=== PATIENT | female | born 1965 | race Caucasian/White ===

== ENCOUNTER 2024-03-04 16:19 | Emergency (ER) | payer OTHER, SELFPAY ==
--- NOTE | 2024-03-04 16:26 | ED.EYEPROB ---
HPI - Eye Problem General Chief complaint: Eye Problems Stated complaint: scratched left eye Time Seen by Provider: 03/04/24 16:39 Source: patient and RN notes reviewed Mode of arrival: ambulatory Limitations: no limitations History of Present Illness HPI Narrative: 58 year old female presents with concern for scratch on her left eye. Reports she feels like she scratched it with her mascara Wand this morning. She denies vision changes chief complaint: eye pain Related Data Allergies Allergy/AdvReac Type Severity Reaction Status Date / Time Cephalosporins Allergy Unknown Unknown Verified 03/04/24 16:41 Review of Systems Review of Systems: CONSTITUTIONAL: Denies malaise, chills, sweats, or fever. EYES: Denies visual changes. Reports left eye redness, irritation ENT: Denies rhinorrhea, congestion, sinus pain, otalgia or sore throat. SKIN: Denies rash or itching. NEUROLOGIC: Denies numbness, weakness, or headache. PSYCHIATRIC: Denies anxiety or depression. All systems reviewed & are unremarkable except as noted in HPI and below PMFSH Comments At time of signature, agree with nursing past medical, surgical, social and family history. There is no relevant family history pertinent to the presenting complaint Exam Narrative: GENERAL: Well-appearing, well-nourished, and in no acute distress. HEAD: Normocephalic, atraumatic. EYES: PERRLA and EOMI. No nystagmus. Left sclera conjunctivae not injected. Corneal abrasion noted upon Wood's lamp exam, see note Upper and lower eyelid unremarkable, no periorbital edema noted ENT: Nares clear. Mucous membranes moist. NECK: Supple. CHEST: No respiratory distress. Speaks in full sentences. HEART: Regular rate and rhythm. SKIN: Warm, dry, no visible rash. NEURO: Alert and oriented x3. PSYCH: Normal mood and affect Course Course Emergency Course: Patient is aware of diagnosis, understands and agrees to treatment plan. Anticipatory guidance given. Patient agrees to follow-up as directed and is aware of reasons to seek care at the emergency department. Portions of this record may have been created with voice recognition software Level of Care: Express Care Visit Vital Signs Vital signs: Reviewed. Procedures Other Procedure Procedure 1: Other Procedure: Tetracaine 1 gtt instilled in left eye, fluorescein stain applied. Corneal abrasion noted upon frey lamp exam just above. Eye washed with NS 100 ml. No foreign bodies or Tyler sign noted. MDM - Eye Problem MDM Narrative Medical decision making narrative: Consideration of the following conditions may be warranted for the presenting problem, they are not final diagnoses: Bacterial conjunctivitis, allergic conjunctivitis, viral conjunctivitis, foreign body, blepharitis, chalazion, hordeolum, corneal abrasion, preseptal cellulitis, orbital cellulitis. No evidence of proptosis, ophthalmoplegia, vision loss, pain with eye movement. Exam findings show no acute concerns or changes; patient is non-toxic appearing and is in no distress. Patient is appropriate for outpatient treatment and follow-up. Critical Care Time Critical Care Time Critical Care Time: No Discharge Plan Discharge Clinical Impression: Corneal abrasion Patient Disposition: Home, Self-Care Condition: Stable Instructions: Corneal Abrasion (ED) Additional Instructions: Corneal abrasions will heal in 1-2 days. Keep your eye shut and wear sunglasses or stay in low light to avoid light sensitivity. Do not touch or rub your eye or use a fabric patch You may take Tylenol or ibuprofen for pain Follow-up with PCP or trench pipe layer helper if condition is not improving in 2-3days. Prescriptions: New polymyxin B sulf-trimethoprim 10,000 unit- 1 mg/mL drops 1 drp LEFT EYE Q3H 7 Days Qty: 10 0RF Rx Instructions: while awake; do not exceed 6 doses in 24 hours Follow-up/Referrals: PHYSICIAN,POTATO SEED CUTTER [Primary Care Provider] -
[2024-03-04 16:41] VITALS: BP 130/60; PULSE 70; RESP 16; TEMP 36.6; O2SAT 99
== END 2024-03-04 16:56 | disposition home or self-care (01) ==
PROVIDERS: Emergency Provider Nurse Practitioner
DX: S05.02XA Injury of conjunctiva and corneal abrasion without foreign body, left eye, initial encounter (principal); W22.8XXA Striking against or struck by other objects, initial encounter
CPT/HCPCS: 99203; A9270; G0463

== ENCOUNTER 2024-06-16 15:10 | Emergency (ER) | payer OTHER, SELFPAY ==
[2024-06-16 15:20] VITALS: BP 126/73; PULSE 83; RESP 16; TEMP 36.4; O2SAT 100
[2024-06-16 16:07] LABS: EDUAAPPEAR Clear; EDUABILI Negative (Negative); EDUABLOOD Negative (Negative); EDUACOLOR1 Light/Pale; EDUAGLUCOSE Negative (Negative); EDUAKETONE Negative (Negative); EDUALEUKO Negative (Negative); EDUANITRATE Negative (Negative); EDUAPROTEIN Negative (Negative); EDUAUROBILI 0.2
--- NOTE | 2024-06-16 16:38 | ED_ITS ---
HPI - Female Genitourinary General Chief complaint: Urogenital-Female Stated complaint: uti symptoms Time Seen by Provider: 06/16/24 16:10 Source: patient Mode of arrival: ambulatory Limitations: no limitations History of Present Illness HPI Narrative: 58-year-old female presents with complaint of vaginal irritation, itching for approximately 5-6 days. Tried an [id number] Monistat without relief. Called telehealth through her health insurance on Wednesday and was prescribed Bactrim and fluconazole. Continues to have symptoms. Tried [id number] Monistat again yesterday. Patient reports recently getting multiple yeast infections due to getting sweaty during tennis. States she has tried showering and changing our undergarments right after exercise but does not seem to be helping. Denies discharge. No concern for STI. Is having some urinary frequency and urgency. Thinks she needs another Diflucan. All Systems reviewed and negative except as noted. Related Data Allergies Allergy/AdvReac Type Severity Reaction Status Date / Time Cephalosporins Allergy Unknown Unknown Verified 06/16/24 15:31 Review of Systems Review of Systems: CONSTITUTIONAL: Denies fever, chills, or sweats. EYES: Denies visual changes, redness, or discharge. ENT: Denies rhinorrhea, congestion, sore throat, or otalgia. CARDIOVASCULAR: Denies chest pain, palpitations, or edema. RESPIRATORY: Denies cough or dyspnea. GASTROINTESTINAL: Denies abdominal pain, nausea, vomiting, or diarrhea. GENITOURINARY: Denies dysuria or hematuria. Reports vaginal irritation and discharge. Reports urinary frequency and urgency. SKIN: Denies rash or itching. MUSCULOSKELETAL: Denies back pain, joint pain, or myalgia. NEUROLOGIC: Denies headache, numbness, or weakness. PSYCHIATRIC: Denies anxiety or depression. All other systems reviewed are negative, except as documented in HPI. PMFSH Comments At time of signature, agree with nursing past medical, surgical, social and family history. There is no relevant family history pertinent to the presenting complaint. Exam Narrative: GENERAL: This is a well-nourished, well-developed patient, in no apparent distress. HEAD: normocephalic, atraumatic. EYES: PERRL. Sclera clear/white. Vision is grossly intact. EARS: External ears normal NOSE: External nose normal NECK: Neck supple, non-tender without lymphadenopathy, masses or thyromegaly. CARDIOVASCULAR: Regular rate and rhythm without murmurs, gallops, or rubs. RESPIRATORY: Clear to auscultation. Breath sounds equal bilaterally. No wheezes, rales, or rhonchi. SKIN: warm, Dry, intact with no suspicious lesions or rash, good texture and turgor. NEURO: awake, alert, and oriented to person, place and time. There were no obvious focal neurologic abnormalities. EXTREMITIES: No joint tenderness, effusion, or edema noted. Urogenital: Pelvic exam deferred Course Course Level of Care: Express Care Visit Vital Signs Vital signs: Vital Signs Temperature 36.4 C 06/16/24 15:20 Pulse Rate 83 06/16/24 15:20 Respiratory Rate 16 06/16/24 15:20 Blood Pressure 126/73 06/16/24 15:20 Pulse Oximetry 100 06/16/24 15:20 Temperature 36.4 C 06/16/24 15:20 Pulse Rate 83 06/16/24 15:20 Respiratory Rate 16 06/16/24 15:20 Blood Pressure 126/73 06/16/24 15:20 Pulse Oximetry 100 06/16/24 15:20 Reviewed MDM - Female Genitourinary MDM Narrative Medical decision making narrative: Bacterial vaginosis and general culture pending. Urinalysis was normal. Patient well-appearing, nontoxic. Recommend patient follow-up with watermelon inspector if symptoms not improving. Patient is aware of diagnosis, understands and agrees to treatment plan. Anticipatory guidance given. Patient agrees to follow-up as directed and is aware of reasons to seek care at the emergency department. Portions of this record may have been created with voice recognition software Lab Data Labs: Lab Results 06/16/24 06/16/24 Range/Units 16:05 16:34 POC Urine Color Light/pale POC Urine Clarity Clear POC Urine pH 6.0 POC Ur Specif Frakes 1.010 POC Urine Protein Negative (Negative) POC Ur Glucose (UA) Negative (Negative) POC Urine Ketones Negative (Negative) POC Urine Blood Negative (Negative) POC Urine Nitrite Negative (Negative) POC Urine Bilirubin Negative (Negative) POC Urine Urobilinogen 0.2 POC U Leukocyte Esteras Negative (Negative) Bact Vaginosis Panel Pending Discharge Plan Discharge Clinical Impression: Vaginitis Qualifiers: Chronicity: acute Qualified Code(s): N76.0 - Acute vaginitis Patient Disposition: Home, Self-Care Condition: Stable Instructions: Yeast Infection (ED) Additional Instructions: Testing was ordered for yeast and bacterial vaginosis. Results will take 48 to 72 hours. Take fluconazole as prescribed. Follow up with watermelon inspector if symptoms not improving. Patient Language: Monegasque Prescriptions: New fluconazole 150 mg tablet 150 mg PO ONCE 1 Days Qty: 1 0RF Follow-up/Referrals: PHYSICIAN,SUPERVISOR AIRCRAFT CLEANING [Primary Care Provider] - Time of Disposition: 16:33
[2024-06-17 11:24] LABS: Bacterial Vaginosis NEGATIVE (NEGATIVE)
== END 2024-06-16 16:41 | disposition home or self-care (01) ==
PROVIDERS: Emergency Provider Nurse Practitioner Family
DX: N76.0 Acute vaginitis (principal)
CPT/HCPCS: 81003; 81513; 87070; 99213; G0463

== ENCOUNTER 2024-09-18 16:01 | Emergency (ER) | payer OTHER, SELFPAY ==
[2024-09-18 16:30] VITALS: BP 124/80; PULSE 68; RESP 16; TEMP 36.2; O2SAT 100
--- NOTE | 2024-09-18 17:04 | ED_ITS ---
HPI - Ear Problem General Chief complaint: Ear Stated complaint: Ear Pain Source: patient Mode of arrival: ambulatory Limitations: no limitations History of Present Illness HPI Narrative: 58 y/o female presented for c/o right ear pain for over 2 weeks. Pt was in [place] at onset, and utilized Tele[employer], advised antihistamines and Flonase. When that did not resovle the symptoms she was sent levofloxacin. Still reports right ear fullness and drainage. Denies tinnitus, dizziness, sore throat, n/v/d/f/c. Says she cannot tolerate the Zyrtec due to nose bleeds. Complaint: ear pain Related Data Allergies Allergy/AdvReac Type Severity Reaction Status Date / Time Cephalosporins Allergy Unknown Unknown Verified 06/16/24 15:31 Review of Systems Review of Systems: CONSTITUTIONAL: Denies malaise, chills, or fever. EYES: Denies visual changes, redness, or discharge. ENT: Denies sinus pain, and sore throat. Reports ear pain CARDIOVASCULAR: Denies chest pain, palpitations, or edema. RESPIRATORY: reports cough. GASTROINTESTINAL: Denies abdominal pain, nausea, vomiting, diarrhea SKIN: Denies rash or itching. MUSCULOSKELETAL: Denies myalgia. NEUROLOGIC: Denies headache. All systems reviewed & are unremarkable except as noted in HPI and below PMFSH Comments At time of signature, agree with nursing past medical, surgical, social and family history. There is no relevant family history pertinent to the presenting complaint Exam Narrative: GENERAL: Well-appearing EYES: conjunctivae clear ENT: Nares clear. Mucous membranes moist. TMs pearly lopez with dull light reflex bilaterally; right TM with cloudy effusion. no tragal tenderness. Oropharynx not erythematous without lesions. NECK: Supple. No lymphadenopathy CHEST: Clear to auscultation, breath sounds equal. HEART: Regular rate and rhythm. No murmur heard. SKIN: Warm, dry, no rash. NEURO: Alert and oriented x3. PSYCH: Normal mood and affect Course Course Emergency Course: Patient is aware of diagnosis, understands and agrees to treatment plan. Anticipatory guidance given. Patient agrees to follow-up as directed and is aware of reasons to seek care at the emergency department. Portions of this record may have been created with voice recognition software Level of Care: Express Care Visit Vital Signs Vital signs: Vital Signs Temperature 97.1 F L 09/18/24 16:30 Pulse Rate 68 09/18/24 16:30 Respiratory Rate 16 09/18/24 16:30 Blood Pressure 124/80 09/18/24 16:30 Pulse Oximetry 100 09/18/24 16:30 Temperature 97.1 F L 09/18/24 16:30 Pulse Rate 68 09/18/24 16:30 Respiratory Rate 16 09/18/24 16:30 Blood Pressure 124/80 09/18/24 16:30 Pulse Oximetry 100 09/18/24 16:30 Reviewed Medical Decision Making MDM Narrative Medical decision making narrative: Discussed physical exam findings, right AOM. Advised supportive measures and signs/symptoms to go to the ER. Patient is appropriate for outpatient treatment and follow-up. Differential Diagnosis Differential Diagnosis: Coronavirus, strep pharyngitis, allergic rhinitis, upper respiratory tract infection, sinusitis, rhinosinusitis, nasopharyngitis, viral pharyngitis, otitis media, otitis externa, eustachian tube dysfunction, foreign body, cerumen imp action. Vital Signs Vital Signs: Vital Signs Temperature 97.1 F L 09/18/24 16:30 Pulse Rate 68 09/18/24 16:30 Respiratory Rate 16 09/18/24 16:30 Blood Pressure 124/80 09/18/24 16:30 Pulse Oximetry 100 09/18/24 16:30 Temperature 97.1 F L 09/18/24 16:30 Pulse Rate 68 09/18/24 16:30 Respiratory Rate 16 09/18/24 16:30 Blood Pressure 124/80 09/18/24 16:30 Pulse Oximetry 100 09/18/24 16:30 Discharge Plan Discharge Clinical Impression: Otitis media Patient Disposition: Home Condition: Stable Instructions: Antibiotic Form, Ear Infection (ED) Additional Instructions: Take antibiotics as directed. Recommendations: antihistamine such as Benadryl, Zyrtec or Hailey for sinus congestion Flonase nasal spray, and saline nasal mist. Increase fluids, and increase humidity of the air at home. Tylenol 1000mg every 8 hours as needed to reduce fever, pain Please schedule a follow-up visit with your personal physician If your symptoms persist, change or worsen significantly, go to the emergency department for further evaluation. Patient Language: Swedish Prescriptions: New prednisone 20 mg tablet 40 mg PO DAILY 4 Days Qty: 8 0RF amoxicillin-pot clavulanate 875-125 mg tablet 1 tablet PO Q12H 7 Days Qty: 14 0RF fluconazole 150 mg tablet 150 mg PO DAILY Qty: 2 0RF Follow-up/Referrals: PHYSICIAN,LICENSED AND CERTIFIED MIDWIFE [Primary Care Provider] - Time of Disposition: 17:12
== END 2024-09-18 17:15 | disposition home or self-care (01) ==
PROVIDERS: Emergency Provider Nurse Practitioner Family
DX: H66.91 Otitis media, unspecified, right ear (principal)
CPT/HCPCS: 99213; G0463

== ENCOUNTER 2025-01-11 01:29 | Emergency (ER) | payer OTHER, SELFPAY ==
--- OUTSIDE RECORDS SUMMARY | 2025-01-11 01:31 | XMS_ITS | Clinical Summary ---
Author Organization [facility] Administrative Offices Address [address] [place] [id number] Care Team Providers Care Overlay Plastician Name Role Phone Unavailable Primary Care Provider Unavailabl e Allergies Active Allergy Reactions Criticality Noted Date Comments Cephalosporins Rash Medium 12/06/2018 Medications Ciclopirox (Ciclodan) 8 % Solution Apply to affected area daily. Once weekly clean the nail with rubbing alcohol. 6.6 mL 5 11/04/2020 Active Active Problems Problem Noted Date Diagnosed Date Plantar fasciitis 03/14/2019 Immunizations Immunization Administration Dates Next Due (ADACEL/BOOSTRIX)(10 YR UP) TDAP VACCINE, 0.5ML, IM 12/06/2018 (PFIZER)(12 YR UP) COVID-19 VACCINE - EMERGENCY USE AUTHORIZATION, MRNA, [id number](PF) 30 MCG/0.3 ML IM SUSP 09/27/2020,09/07/2020 Hepatitis A Vaccine 12/06/2018 Hepatitis B Vaccine 12/06/2018 Influenza Seasonal Unspecified Formulation IM Family History Medical History Relation Name Comments Heart Disease Father pacemaker High Cholesterol Father Heart Disease Mother Healthy Sister 1 Healthy Sister 2 Relation Name Status Comments Father Alive Mother Alive Sister 1 Alive Sister 2 Alive Social History Tobacco Use Types Packs/Day Years Used Date Smoking Tobacco: Never Smokeless Tobacco: Never Comments No Sex and Gender Information Value Date Recorded Sex Assigned at Not on file Legal Sex Female 11:55 AM GAS SYSTEM OPERATOR Gender Identity Not on file Sexual Orientation Not on file Last Filed Vital Signs Vital Sign Reading Time Taken Comments Blood Pressure 120/60 04/04/2020 10:50 AM CDT Pulse 62 11/04/2020 1:51 PM CDT Temperature 37.1 C (98.7 F) 04/04/2020 10:50 AM CDT Respiratory Rate - - Oxygen Saturation 99% 04/04/2020 10:50 AM CDT Inhaled Oxygen Concentration - - Weight 59 kg (130 lb) 11/04/2020 1:51 PM CDT Height 170.2 cm (5' 7) 11/04/2020 1:51 PM CDT Body Mass Index 20.36 11/04/2020 1:51 PM CDT Plan of Treatment Health Maintenance Due Date Last Done Comments HPV/Cotest (21-29) 1985 CERVICAL CANCER SCREENING 1994 HPV/Cotest (30-65) 1994 PAP SMEAR 1994 COLORECTAL SCREENING 2009 Colorectal Cancer Screening 2009 FIT-DNA Q 3 years 2009 FIT/FOBT Q 1 year 2009 Flex Sig/CT Colonography Q 5 years 2009 ZOSTER VACCINE (1 of 2) 2014 BREAST CANCER SCREENING 07/08/2019 07/08/19 19, 06/09/2018 COVID-19 Vaccine (3 - 2023-2 5 season) 2024 09/27/2020, 09/07/2020 INFLUENZA VACCINE (#1) 2025 0, 03/23/2020 DTAP/TDAP/TD VACCINES (2 - T d or Tdap) 12/06/2028 12/06/2018 RSV VACCINE (60+ or ) (1 - 1-dose 75+ series) 10/15/2039 HEPATITIS B VACCINES Aged Out 12/06/2018 No long er eligible based on patient's age to complete this topic Procedures Procedure Name Priority Date/Time Associated Diagnosis Comments MAMMO DIAG UNI RIGHT 3D JOSSELIN W OR WO CAD Routine 07/08/2018 8:58 AM GAS SYSTEM OPERATOR Other abnormal and inconclusive findings on diagnostic imaging of breast from Last 3 Months or Most Recently Relevant to Health Maintenance Results * MAMMO DIAG UNI RIGHT 3D JOSSELIN W OR WO CAD (07/08/2018 8:58 AM GAS SYSTEM OPERATOR) Anatomical Region Laterality Modality Breast Right Mammography 07/08/2018 8:58 AM GAS SYSTEM OPERATOR Impressions 07/08/2018 4:49 PM GAS SYSTEM OPERATOR IMPRESSION: No mammographic evidence of malignancy. RECOMMENDATIONS: Routine screening mammogram in one year. DICTATION LOCATION: [facility] Narrative 07/08/2018 4:49 PM GAS SYSTEM OPERATOR EXAM: UNILATERAL FULL-FIELD DIGITAL DIAGNOSTIC MAMMOGRAM OF THE RIGHT BREAST WITH CAD WITH 3D TOMOSYNTHESIS DATE: 07/08/2018 8:58 AM HISTORY: Recent abnormal screening mammogram. TECHNIQUE: Full-field digital mammography of the right breast was performed. Low-dose full-field digital breast tomosynthesis examination was performed with 2D and 3D acquisitions. Examination is read in conjunction with computer aided detection. COMPARISON: May 2013 and May 2018. BREAST COMPOSITION: Scattered fibroglandular densities. FINDINGS: Additional mammographic views do not confirm the presence of an abnormality in the area previously suspected on mammography. The patient has been informed. Computer aided detection identified no significant abnormality. OVERALL ASSESSMENT: BI-RADS Category 1 - Negative. Procedure Note Shade Zimmerman MD - 07/08/2018 EXAM: UNILATERAL FULL-FIELD DIGITAL DIAGNOSTIC MAMMOGRAM OF THE RIGHT BREAST WITH CAD WITH 3D TOMOSYNTHESIS DATE: 07/08/2018 8:58 AM HISTORY: Recent abnormal screening mammogram. TECHNIQUE: Full-field digital mammography of the right breast was performed. Low-dose full-field digital breast tomosynthesis examination was performed with 2D and 3D acquisitions. Examination is read in conjunction with computer aided detection. COMPARISON: May 2013 and May 2018. BREAST COMPOSITION: Scattered fibroglandular densities. FINDINGS: Additional mammographic views do not confirm the presence of an abnormality in the area previously suspected on mammography. The patient has been informed. Computer aided detection identified no significant abnormality. OVERALL ASSESSMENT: BI-RADS Category 1 - Negative. IMPRESSION: No mammographic evidence of malignancy. RECOMMENDATIONS: Routine screening mammogram in one year. DICTATION LOCATION: [facility] Greg Zuñiga MD MAMMO ORDERABLES Final Result from Last 3 Months or Most Recently Relevant to Health Maintenance [place] [address] [place] [address] [facility] [id number]
--- OUTSIDE RECORDS SUMMARY | 2025-01-11 01:31 | XMS_ITS | Referral Summary ---
Author Organization [facility] Address [address] [place] [id number] Care Team Providers Care Small Business Consultant Name Role Phone Real Bo MD Primary Care Provider + Sil Souza MD Unavailable [phone] Allergies Active Allergy Reactions Criticality Noted Date Comments Cephalosporins Hives,Rash Medium 12/06/2018 Medications CALCIUM ORAL Take by mouth daily Active [id number] -FISH OIL-COQ10 ORAL Take 2 tablets by mouth daily Active Active Problems Problem Noted Date Diagnosed Date Cervical cancer screening 07/21/2024 Overview (07/21/2024): 07/13/2024 - Pap Negative, HPV Negative. Well woman exam with routine gynecological exam 07/13/2024 Assessment & Plan (07/13/2024 10:29 AM LEAF SIZE PICKER): Pap smear and HPV were performed. Recommend self-breast exam and she is getting her mammogram this year. She is also planning on doing the Cologuard test. Plan to check a BD affirm for rule out yeast. We will also send a urine culture on though her urinalysis was negative. She was given information on vulvar care as well as samples of lubricants. Recommend follow-up in 1 year. Urinary frequency 07/13/2024 Pain of foot 08/17/2016 Social History Tobacco Use Types Packs/Day Years Used Date Smoking Tobacco: Never AUDIT-C Answer Date Recorded Frequency of Alcohol Consumption Not on file 07/13/2024 Q2: How many drinks containi ng alcohol do you have on a typical day when you are drinking? Patient does not drink Frequency of Binge Drinking Not on file 06/16 Comments No Sex and Gender Information Value Date Recorded Sex Assigned at Not on file Legal Sex Female 6:17 AM LEAF SIZE PICKER Gender Identity Not on file Sexual Orientation Not on file Last Filed Vital Signs Vital Sign Reading Time Taken Comments Blood Pressure 114/62 07/13/2024 9:12 AM LEAF SIZE PICKER Pulse - - Temperature - - Respiratory Rate - - Oxygen Saturation - - Inhaled Oxygen Concentration - - Weight 64.9 kg (143 lb) 07/13/2024 9:12 AM LEAF SIZE PICKER Height 166.4 cm (5' 5.5) 07/13/2024 9:12 AM LEAF SIZE PICKER Body Mass Index 23.43 07/13/2024 9:12 AM LEAF SIZE PICKER Plan of Treatment Not on file Procedures Procedure Name Priority Date/Time Associated Diagnosis Comments HIGH RISK HPV DNA DETECTION WITH GENOTYPING Routine 07/13/2024 12:00 PM LEAF SIZE PICKER Well woman exam with routine gynecological exam Special screening examination for human papillomavirus (HPV) Screening for malignant neoplasm of the cervix from Last 3 Months or Most Recently Relevant to Health Maintenance Results * High Risk HPV DNA Detection with Genotyping (Molecular component) (07/13/2024 12:00 PM LEAF SIZE PICKER) HPV HR 16 Not Detected Not Detected HPV HR 18 Not Detected Not Detected [facility] HPV HR Non 16/18 Not Detected Not Detected [facility] Comment: Interpretive Data Nucleic acid amplification for detection of high-risk Human Papilloma virus (HPV) is performed by the Dread [place] 4800 HPV test, which specifically detects high-risk HPV-16, 18, 31, 33, 35, 39, 45, 51, 52, 56, 58, 59, 66, and 68 genotypes. This assay has been approved by the [place] Food and Drug Administration for detection of HPV in cervical specimens collected by a physician using an endocervical brush/spatula or cervical broom and placed in the ThinPrep Pap Test PreservCyt collection containers. The performance characteristics of this test have been verified by the [facility]. Correlate with separately reported cytology results, as applicable. Interpretive data last revised 22 Endocervical 07/13/2024 12:0 0 PM LEAF SIZE PICKER 07/13/2024 4:14 PM LEAF SIZE PICKER Narrative [facility] - 07/19/2024 5:58 PM LEAF SIZE PICKER Clinical history and diagnosis->z01.419 Number of vials->1 Testing type->Screening Last menstrual period (date if known)->none us Sil Souza MD LAB BODY FLUIDS AND STOOLS OR DERABLES Final Result [facility] [address] Department [place] [address] from Last 3 Months or Most Recently Relevant to Health Maintenance Insurance [employer] Care Teams Small Business Consultant Relationship Specialty Start Date End Date Real Bo MD PCP - General 10/05/16 Sil Souza MD [address] [place] [address] Consulting Physician Obstetrics and Gynecology 06/20/24
--- OUTSIDE RECORDS SUMMARY | 2025-01-11 01:31 | XMS_ITS | Clinical Summary ---
Author Organization [facility] Address [address] [place] [address] Care Team Providers Care Belt Picker Name Role Phone Danny Barker MD Primary Care Provider [phone] Source Comments [facility],non-owned Affiliates and Associated Physician Practices is amultiple site organization consisting of ambulatory clinics and hospital sitesin [place], [place], [place] and [place]. This disclosure is being madepursuant to the Care Everywhere program and may not contain all information available regarding this patient. Last updated 18.[facility] Allergies Active Allergy Reactions Criticality Noted Date Comments Cephalosporins Rash Medium 12/06/2018 Immunizations Immunization Administration Dates Next Due HEP A VACCINE, ADULT 12/06/2018 HEP B VACCINE, ADULT 3 DOSE 12/06/2018 TDAP (7yrs+) 12/06/2018 Social History Tobacco Use Types Packs/Day Years Used Date Smoking Tobacco: Never Assessed Comments Unknown Sex and Gender Information Value Date Recorded Sex Assigned at Not on file Legal Sex Female 3:05 PM CDT Gender Identity Not on file Sexual Orientation Not on file Plan of Treatment Health Maintenance Due Date Last Done Comments COLOGUARD (AGES 45-75) - COL ON CA SCREENING 1964 COLON MONITORING 1964 COLONOSCOPY - COLON CA SCREENING 1964 CT COLONOGRAPHY - COLON CA SCREENING 1964 Colorectal Cancer Screening 1964 FIT - COLON CA SCREENING 1964 FLEX SIG - COLON CA SCREENING 1964 LIPID TESTING 1964 MAMMOGRAM 1964 HIV SCREENING 10/15/1979 HEPATITIS C SCREENING 10/10/1982 PNEUMOCOCCAL VACCINE 50+ (1 of 1 - PCV) 2014 ZOSTER VACCINE (1 of 2) 2014 HEPATITIS B VACCINE (2 of 3 - Risk 3-dose series) 01/03/2019 12/06/2018 HEPATITIS A VACCINE (2 of 2 - Risk 2-dose series) 06/07/2019 12/06/2018 COVID-19 VACCINE (1 - 2023-2 5 season) 2024 DEPRESSION SCREENING 06/14/2024 INFLUENZA VACCINE (#1) 2025 DTAP/TDAP/TD VACCINES (2 - T d or Tdap) 12/06/2028 12/06/2018 Respiratory Syncytial Virus (RSV) Vaccine Pt: or over 60 yrs (1 - 1-dose 75+ series) 10/15/2039 HIB VACCINE Aged Out No longer eligi ble based on patient's age to complete this topic HPV VACCINE Aged Out No longer eligi ble based on patient's age to complete this topic MENINGOCOCCAL (Group B) VACC INE SHARED DECISION-MAKING Aged Out No longer eligibl e based on patient's age to complete this topic MENINGOCOCCAL GROUPS A/C/Y/W VACCINE Aged Out No longer eligible b ased on patient's age to complete this topic Insurance Care Teams Belt Picker Relationship Specialty Start Date End Date Danny Barker MD [address] [place] [id number] PCP - General Internal Medicine 12/06/18
--- OUTSIDE RECORDS SUMMARY | 2025-01-11 01:31 | XMS_ITS | Clinical Summary ---
Author Organization [facility] D Address [address] [place] [phone] Care Team Providers Care Inspector Production Plastic Parts Name Role Phone Real Bo MD Primary Care Provider + Sil Souza MD Unavailable [phone] Allergies Active Allergy Reactions Criticality Noted Date Comments Cephalosporins Hives,Rash Medium 12/06/2018 Medications CALCIUM ORAL Take by mouth daily Active [id number]-[id number]-EPA -FISH OIL-COQ10 ORAL Take 2 tablets by mouth daily Active Active Problems Problem Noted Date Diagnosed Date Cervical cancer screening 07/21/2024 Overview (07/21/2024): 07/13/2024 - Pap Negative, HPV Negative. Well woman exam with routine gynecological exam 07/13/2024 Assessment & Plan (07/13/2024 10:29 AM DIRECTOR SPECIALTY): Pap smear and HPV were performed. Recommend [...] Urinary frequency 07/13/2024 Pain of foot 08/17/2016 Medical History Medical History Date Comments Yeast infection Family History Medical History Relation Name Comments Heart disease Father Family history of cardiac disorder - (Added by TW Conv) Heart disease Mother Family history of cardiac disorder - (Added by TW Conv) Hypertension Mother Family history of hypertension - (Added by TW Conv) Relation Name Status Comments Father Alive Mother Alive Social History Tobacco Use Types Packs/Day [...] on file Legal Sex Female 6:17 AM DIRECTOR SPECIALTY Gender Identity Not on file Sexual Orientation Not on file Obstetrics History Para Term AB IAB SAB Ectopic Multiple Livin g Live Births 3 3 3 Date Outcome GA Total Labor Labor//3rd Weight Sex Type Anes PTL Leanne A1 A5 Name Clin Term Term Term Last Filed Vital Signs Vital Sign Reading Time Taken Comments Blood Pressure 114/62 07/13/2024 9:12 AM DIRECTOR SPECIALTY Pulse - - Temperature - - Respiratory Rate - - Oxygen Saturation - - Inhaled Oxygen Concentration - - Weight 64.9 kg (143 lb) 07/13/2024 9:12 AM DIRECTOR SPECIALTY Height 166.4 cm (5' 5.5) 07/13/2024 9:12 AM DIRECTOR SPECIALTY Body Mass Index 23.43 07/13/2024 9:12 AM DIRECTOR SPECIALTY Plan of Treatment Health Maintenance Due Date Last Done Comments Colon Cancer Screening-Colonoscopy 1964 Depression Screening 1964 Hepatitis C Screening 1964 Zoster Vaccine (1 of 2) 2014 Breast Cancer Screening-Mammogram 06/09/2019 06/09/2018 Covid-19 Vaccine (3 2023-2 5 season) 2024 09/27/2020, 09/07/2020 Influenza Vaccine (#1) 2025 03/23/2020 Cervical Cancer Screening 07/13/20252024, 07/13/2024 Regular Well Visit/Exam 18-64 07/13/2025 07/13/2024 DTaP/Tdap/Td Vaccine (2 - Td or Tdap) 12/06/2028 12/06/2018 Hepatitis B Screening Completed 12/06/2018 Pneumococcal vaccine <65 Aged Out No longer eligible based on patient's age to complete this topic Procedures Procedure Name Priority Date/Time Associated Diagnosis Comments HIGH RISK HPV DNA DETECTION WITH GENOTYPING Routine 07/13/2024 12:00 PM DIRECTOR SPECIALTY Well woman exam with routine gynecological exam Special screening examination for human papillomavirus (HPV) Screening for malignant neoplasm of the cervix from Last 3 Months or Most Recently Relevant to Health Maintenance Results * High Risk HPV DNA Detection with Genotyping (Molecular component) (07/13/2024 12:00 PM DIRECTOR SPECIALTY) HPV HR 16 Not Detected Not Detected HPV HR 18 Not Detected Not Detected [facility] HPV HR Non 16/18 Not Detected Not Detected [facility] Comment: Interpretive Data Nucleic acid amplification for [...] this test have been verified by the [facility]. Correlate with separately reported cytology results, as applicable. Interpretive data last revised 22 Endocervical 07/13/2024 12:0 0 PM DIRECTOR SPECIALTY 07/13/2024 4:14 PM DIRECTOR SPECIALTY Narrative [facility] - 07/19/2024 5:58 PM DIRECTOR SPECIALTY Clinical history and diagnosis->z01.419 Number of vials->1 Testing type->Screening Last menstrual period (date if known)->none us Sil Souza MD LAB BODY FLUIDS AND STOOLS OR DERABLES Final Result [facility] [address] [place] [address] from Last 3 Months or Most Recently Relevant to Health Maintenance Insurance [facility] [employer] Care Teams Inspector Production Plastic Parts Relationship Specialty Start Date End Date Real Bo MD PCP - General 10/05/16 Sil Souza MD [address] [facility] [address] [place] [address] Consulting Physician Obstetrics and Gynecology 06/20/24
[2025-01-11 01:36] VITALS: BP 148/74; PULSE 69; RESP 16; TEMP 36.5; O2SAT 100
--- NOTE | 2025-01-11 02:28 | ED_ITS ---
HPI - General Adult General Chief complaint: Eye Problems Stated complaint: swelling to eye Time Seen by Provider: 01/11/25 02:04 History of Present Illness HPI narrative: This is a 5-year-old female presenting with swelling to her right eyelid. Patient was doing gardening all day today. She was weeding plan sprain them with a mixture of home remedies including vinegar as well as some industrial products. She has also been removing what she believes to be is poison vale although she has been wearing gloves. She is concerned because after she finished although she believes her touch tried she has developed a burning itching sensation over her right eyelid associated with some minor swelling. No other signs of allergic reaction such as wheezing, tongue or throat swelling, chest pain difficulty breathing nausea vomiting or diarrhea. She has taken Benadryl with minimal relief. No irritation to the eye or visual changes. Related Data Allergies Allergy/AdvReac Type Severity Reaction Status Date / Time Cephalosporins Allergy Unknown Unknown Verified 06/16/24 15:31 Exam Narrative: APPEARANCE: No apparent distress. Head: atraumatic. EYES: Mild swelling to the right eyelid without erythema or cellulitic changes. Extraocular eye movements intact. NOSE: Atraumatic NECK: Trachea midline RESPIRATORY: No increased rate of breathing CARDIOVASCULAR: RRR, ABDOMINAL: Non-distended MUSCULOSKELETAl: No obvious deformities NEURO: Alert. Moving 4/4 extremities SKIN:: Warm, dry. Normal color PSYCHIATRIC: Normal affect Course Vital Signs Vital signs: Vital Signs Temperature 97.7 F 01/11/25 01:36 Pulse Rate 69 01/11/25 01:36 Respiratory Rate 16 01/11/25 01:36 Blood Pressure 148/74 H 01/11/25 01:36 Pulse Oximetry 100 01/11/25 01:36 Oxygen Delivery Room Air 01/11/25 01:36 Temperature 97.7 F 01/11/25 01:36 Pulse Rate 69 01/11/25 01:36 Respiratory Rate 16 01/11/25 01:36 Blood Pressure 148/74 H 01/11/25 01:36 Pulse Oximetry 100 01/11/25 01:36 Oxygen Delivery Room Air 01/11/25 01:36 Medical Decision Making [facility] Narrative Medical decision making narrative: -Course: 59-year-old female presenting with right eyelid swelling. Unclear if this is an allergic reaction versus chemical dermatitis versus poison vale as she has only had symptoms for several hours. At this time will treat her with steroids Benadryl and Pepcid. She has been instructed follow-up with primary care physician for further management. She develops eye involvement she should return see her technical business analyst. Patient has verbalized understanding of instructions. Vital Signs Vital Signs: Vital Signs Temperature 97.7 F 01/11/25 01:36 Pulse Rate 69 01/11/25 01:36 Respiratory Rate 16 01/11/25 01:36 Blood Pressure 148/74 H 01/11/25 01:36 Pulse Oximetry 100 01/11/25 01:36 Oxygen Delivery Room Air 01/11/25 01:36 Temperature 97.7 F 01/11/25 01:36 Pulse Rate 69 01/11/25 01:36 Respiratory Rate 16 01/11/25 01:36 Blood Pressure 148/74 H 01/11/25 01:36 Pulse Oximetry 100 01/11/25 01:36 Oxygen Delivery Room Air 01/11/25 01:36 Discharge Plan Discharge Clinical Impression: Allergic reaction Patient Disposition: Home Condition: Stable Instructions: Antibiotic Form, Poison Vale (ED), General Allergic Reaction (ED) Additional Instructions: You were seen in the ED for swelling of her eyelid. It is unclear if this is due to allergic reaction or poison vale. Please continue using Benadryl for itching and using cold compresses. Please follow-up with your primary care physician in 3-5 days. If you develop involvement of your eye placing technical business analyst return to the ED for re-evaluation. Patient Language: Portuguese Prescriptions: No Action prednisone 20 mg tablet 40 mg PO DAILY 4 Days Qty: 8 0RF amoxicillin-pot clavulanate 875-125 mg tablet 1 tablet PO Q12H 7 Days Qty: 14 0RF fluconazole 150 mg tablet 150 mg PO DAILY Qty: 2 0RF Follow-up/Referrals: PHYSICIAN,DISTRIBUTION TECHNICIAN [Primary Care Provider] -
--- OUTSIDE RECORDS SUMMARY | 2025-01-11 02:30 | XMS_ITS | Clinical Summary ---
Author Organization [facility] Address [address] [place] [address] Care Team Providers Care Manager Card Name Role Phone Danny Barker MD Primary Care Provider [phone] [facility] [employer],non-owned Affiliates and Associated Physician Practices is amultiple site organization consisting of ambulatory clinics and hospital sitesin [place], [place], [place] and [place]. This disclosure is being madepursuant to the Care Everywhere program and may not contain all information available regarding this patient. Last updated 18.[facility] Allergies Active Allergy Reactions Criticality Noted Date [...] patient's age to complete [place] [address] Care Teams Manager Card Relationship Specialty Start Date End Date Danny Barker MD [address] [place] [phone] PCP - General Internal Medicine 12/06/18
--- OUTSIDE RECORDS SUMMARY | 2025-01-11 02:30 | XMS_ITS | Clinical Summary ---
Author Organization [facility] Administrative [facility]ices Address [address] [place] [phone] Care Team Providers Care Front Office Specialist Name Role Phone Unavailable Primary Care Provider [...] COVID-19 VACCINE - EMERGENCY USE AUTHORIZATION, MRNA, [id number](PF) 30 MCG/0.3 ML IM SUSP 09/27/2020,09/07/2020 Hepatitis [...] on file Legal Sex Female 11:55 AM HOSPICE SUPERINTENDENT Gender Identity Not on file Sexual Orientation [...] OR WO CAD Routine 07/08/2018 8:58 AM HOSPICE SUPERINTENDENT Other abnormal and inconclusive findings on diagnostic imaging of breast from Last 3 Months or Most Recently Relevant to Health Maintenance Results * MAMMO DIAG UNI RIGHT 3D JOSSELIN W OR WO CAD (07/08/2018 8:58 AM HOSPICE SUPERINTENDENT) Anatomical Region Laterality Modality Breast Right Mammography 07/08/2018 8:58 AM HOSPICE SUPERINTENDENT Impressions 07/08/2018 4:49 PM HOSPICE SUPERINTENDENT IMPRESSION: No mammographic evidence of malignancy. RECOMMENDATIONS: Routine screening mammogram in one year. DICTATION LOCATION: [facility] Narrative 07/08/2018 4:49 PM HOSPICE SUPERINTENDENT EXAM: UNILATERAL FULL-FIELD DIGITAL DIAGNOSTIC MAMMOGRAM OF [...] screening mammogram in one year. DICTATION LOCATION: [facility] Greg Zuñiga MD MAMMO ORDERABLES Final Result from Last 3 Months or Most Recently Relevant to Health Maintenance [place] [address] [place] [address] [facility] [id number] [facility] Address: [facility] [id number] [place] [address]
--- OUTSIDE RECORDS SUMMARY | 2025-01-11 02:30 | XMS_ITS | Clinical Summary ---
Author Organization [facility] D Address [address] [place] [phone] Care Team Providers Care Express Clerk Name Role Phone Real Bo MD Primary Care Provider + Sil Souza MD Unavailable [phone] Allergies Active Allergy Reactions Criticality Noted Date Comments Cephalosporins Hives,Rash Medium 12/06/2018 Medications CALCIUM ORAL Take by mouth daily Active HCUAM-1-VKJ-EPA -FISH OIL-COQ10 ORAL Take 2 tablets by mouth daily Active Active Problems Problem Noted Date Diagnosed Date Cervical cancer screening 07/21/2024 Overview (07/21/2024): 07/13/2024 - Pap Negative, HPV Negative. Well woman exam with routine gynecological exam 07/13/2024 Assessment & Plan (07/13/2024 10:29 AM NURSE LEADER): Pap smear and HPV were performed. Recommend [...] on file Legal Sex Female 6:17 AM NURSE LEADER Gender Identity Not on file Sexual Orientation Not on file Obstetrics History Para Term AB IAB SAB Ectopic Multiple Livin g Live Births 3 3 3 Date Outcome GA Total Labor Labor//3rd Weight Sex Type Anes PTL Leanne A1 A5 Name Clin Term Term Term Last Filed Vital Signs Vital Sign Reading Time Taken Comments Blood Pressure 114/62 07/13/2024 9:12 AM NURSE LEADER Pulse - - Temperature - - Respiratory Rate - - Oxygen Saturation - - Inhaled Oxygen Concentration - - Weight 64.9 kg (143 lb) 07/13/2024 9:12 AM NURSE LEADER Height 166.4 cm (5' 5.5) 07/13/2024 9:12 AM NURSE LEADER Body Mass Index 23.43 07/13/2024 9:12 AM NURSE LEADER Plan of Treatment Health Maintenance Due Date [...] DETECTION WITH GENOTYPING Routine 07/13/2024 12:00 PM NURSE LEADER Well woman exam with routine gynecological exam Special screening examination for human papillomavirus (HPV) Screening for malignant neoplasm of the cervix from Last 3 Months or Most Recently Relevant to Health Maintenance Results * High Risk HPV DNA Detection with Genotyping (Molecular component) (07/13/2024 12:00 PM NURSE LEADER) HPV HR 16 Not Detected Not Detected HPV HR 18 Not Detected Not Detected [facility] HPV HR Non 16/18 Not Detected Not Detected [facility] Comment: Interpretive Data Nucleic acid amplification for [...] this test have been verified by the [facility]. Correlate with separately reported cytology results, as applicable. Interpretive data last revised 22 Endocervical 07/13/2024 12:0 0 PM NURSE LEADER 07/13/2024 4:14 PM NURSE LEADER Narrative [facility] - 07/19/2024 5:58 PM NURSE LEADER Clinical history and diagnosis->z01.419 Number of vials->1 Testing type->Screening Last menstrual period (date if known)->none us iSl Souza MD LAB BODY FLUIDS AND STOOLS OR DERABLES Final Result [facility] [address] Department [place] [address] from Last 3 Months or Most Recently Relevant to Health Maintenance Insurance [facility] CHOICE PL[employer] Care Teams Express Clerk Relationship Specialty Start Date End Date Real Bo MD PCP - General 10/05/16 Sil Souza MD [address] [facility] [address] [place] [address] Consulting Physician Obstetrics and Gynecology 06/20/24
--- OUTSIDE RECORDS SUMMARY | 2025-01-11 02:30 | XMS_ITS | Referral Summary ---
Author Organization [facility] D Address [address] [place] [phone] Care Team Providers Care Senior Storage Engineer Name Role Phone Real Bo MD Primary Care Provider + Sil Souza MD Unavailable [phone] Allergies Active Allergy Reactions Criticality Noted Date Comments Cephalosporins Hives,Rash Medium 12/06/2018 Medications CALCIUM ORAL Take by mouth daily Active LZBHD-0-FLS-EPA -FISH OIL-COQ10 ORAL Take 2 tablets by mouth daily Active Active Problems Problem Noted Date Diagnosed Date Cervical cancer screening 07/21/2024 Overview (07/21/2024): 07/13/2024 - Pap Negative, HPV Negative. Well woman exam with routine gynecological exam 07/13/2024 Assessment & Plan (07/13/2024 10:29 AM PIANO TUNER): Pap smear and HPV were performed. Recommend [...] on file Legal Sex Female 6:17 AM PIANO TUNER Gender Identity Not on file Sexual Orientation Not on file Last Filed Vital Signs Vital Sign Reading Time Taken Comments Blood Pressure 114/62 07/13/2024 9:12 AM PIANO TUNER Pulse - - Temperature - - Respiratory Rate - - Oxygen Saturation - - Inhaled Oxygen Concentration - - Weight 64.9 kg (143 lb) 07/13/2024 9:12 AM PIANO TUNER Height 166.4 cm (5' 5.5) 07/13/2024 9:12 AM PIANO TUNER Body Mass Index 23.43 07/13/2024 9:12 AM PIANO TUNER Plan of Treatment Not on file Procedures Procedure Name Priority Date/Time Associated Diagnosis Comments HIGH RISK HPV DNA DETECTION WITH GENOTYPING Routine 07/13/2024 12:00 PM PIANO TUNER Well woman exam with routine gynecological exam Special screening examination for human papillomavirus (HPV) Screening for malignant neoplasm of the cervix from Last 3 Months or Most Recently Relevant to Health Maintenance Results * High Risk HPV DNA Detection with Genotyping (Molecular component) (07/13/2024 12:00 PM PIANO TUNER) HPV HR 16 Not Detected Not Detected HPV HR 18 Not Detected Not Detected [facility] HPV HR Non 16/18 Not Detected Not Detected [facility] Comment: Interpretive Data Nucleic acid amplification [...] this test have been verified by the [facility]. Correlate with separately reported cytology results, as applicable. Interpretive data last revised 22 Endocervical 07/13/2024 12:0 0 PM PIANO TUNER 07/13/2024 4:14 PM PIANO TUNER Narrative [facility] - 07/19/2024 5:58 PM PIANO TUNER Clinical history and diagnosis->z01.419 Number of vials->1 Testing type->Screening Last menstrual period (date if known)->none us Sil Souza MD LAB BODY FLUIDS AND STOOLS OR DERABLES Final Result [facility] [address] Department [place] [address] from Last 3 Months or Most Recently Relevant to Health Maintenance Insurance CHO[employer] PLUS Care Teams Senior Storage Engineer Relationship Specialty Start Date End Date Real Bo MD PCP - General 10/05/16 Sil Souza MD [address] [place] [address] Consulting Physician Obstetrics and Gynecology 06/20/24
[2025-01-11] MEDS: FAMOTIDINE 20 MG TABLET 40 MG PO (02:35)
[2025-01-11] MEDS: dexAMETHasone SOD PHOS INJ 10 MG/ML 1 ML VIAL IM (02:35)
[2025-01-11 02:40] VITALS: BP 142/78; PULSE 58; RESP 18; TEMP 36.9; O2SAT 99
== END 2025-01-11 02:42 | disposition home or self-care (01) ==
PROVIDERS: Emergency Provider Emergency Medicine
DX: T78.40XA Allergy, unspecified, initial encounter (principal); X58.XXXA Exposure to other specified factors, initial encounter
CPT/HCPCS: 96372; 99283; A9270; J1100